=== PATIENT | male | born 1950 | race Caucasian/White ===

== ENCOUNTER 2024-05-12 09:31 | Outpatient (AMB) | payer MEDICARE, SELFPAY ==
[2024-05-12 09:39] VITALS: BP 148/87; PULSE 94; O2SAT 98; BMI 33.5
--- NOTE | 2024-05-12 09:39 | A.OFFVIS_ITS ---
Vital Signs 05/12/24 09:39 Height 5 ft 9 in Weight 227 lb BMI 33.5 BP 148/87 H Blood Pressure Location Rt brachial Position Sitting Pulse 94 Pulse Source Doppler Pulse Oximetry (%) 98 Oxygen Delivery Method Room Air Intake Visit Reasons: sleep apnea Allergies No Known Allergies Allergy (Verified 05/12/24 09:46) HPI HPI sleep apnea: Details: 73-year-old gentleman, lifetime nonsmoker, with underlying history of obstructive sleep apnea, 1st time diagnosed approximately 10 years prior, previo usly unable to tolerate CPAP therapy with recent repeat sleep study at [facility] is interested in retrying CPAP therapy. [facility] Social History (Updated 05/12/24 @ 09:47 by EDILIA Rojas) Patient Tobacco Use Status: Never used Tobacco Review of Systems Const Denies daytime sleepiness, Denies excessive sweating, Denies fatigue, Denies fever(s), Denies lethargy, Denies malaise, Denies night sweats, Denies snoring and Denies weight loss Eyes Denies blurry vision and Denies itchy eyes ENT Denies nasal congestion, Denies post nasal drip, Denies sinus pain, Denies sinus pressure and Denies other ( Thrush) Card Denies chest pain, Denies pedal edema, Denies dyspnea, Denies orthopnea and Denies paroxysmal nocturnal dyspnea Resp Denies cough, Denies hemoptysis, Denies excessive phlegm production, Denies dyspnea, Denies snoring and Denies wheezing GI Denies abdominal pain and Denies heartburn Musc Denies myalgias, Denies arthralgias and Denies joint swelling Skin/Breast Denies rash Neuro Denies memory loss and Denies seizure-like activity Psych Denies abnormal sleep pattern, Denies anxiety and Denies memory loss Endo Denies excessive sweating, Denies fatigue and Denies heat intolerance Kamron/Lymph Denies easy bruising Aller/Immun Denies itchy eyes, Denies seasonal rhinorrhea and Denies wheezing Physical Exam Vital Signs: Last Vital Signs Pulse 94 05/12/24 09:39 BP 148/87 H 05/12/24 09:39 Pulse Ox 98 05/12/24 09:39 Oxygen Delivery Method Room Air 05/12/24 09:39 BMI result Body Mass Index 33.5 Const General: no acute distress and alert Nutritional Appearance: not obese Orientation/consciousness: Other orientation findings ( oriented) HEENT Head: Yes atraumatic Eyes General: appearance normal, both eyes and all related structures Sclerae: sclerae normal EOM: EOMs intact bilaterally Neck Neck: Yes supple Lymphatic: no lymphadenopathy noted Resp Effort & Inspection: normal respiratory effort and no use of accessory muscles Auscultation: clear to auscultation bilaterally Cardio Rate: regular rate Rhythm: regular rhythm Heart sounds: no gallops, no murmurs and no rubs Skin General skin exam: other ( warm) Extrem General: No clubbing, No cyanosis and No edema Assessment & Plan Assessment & Plan (1) RONAN (obstructive sleep apnea): Code(s): G47.33 - Obstructive sleep apnea (adult) (pediatric) Category: Medical Plan: Underlying RONAN. Will obtain results of most recent sleep study from [facility] and order CPAP. Coding Level of Care Code New Pt Level 3 (85298) Diagnoses RONAN (obstructive sleep apnea) G47.33
== END 2024-05-12 10:04 | disposition home or self-care (01) ==
PROVIDERS: PCP Hospitalist; Visit Provider Internal Medicine Pulmonary Disease
DX: G47.33 Obstructive sleep apnea (adult) (pediatric) (principal)
CPT/HCPCS: 99203

== ENCOUNTER → 2024-05-12 09:31 | Outpatient (BNVA) | payer BC, SELFPAY | PROVIDERS: PCP Hospitalist; Visit Provider Internal Medicine Pulmonary Disease ==

== ENCOUNTER 2024-07-15 09:09 | Outpatient (AMB) | payer MEDICARE, SELFPAY ==
[2024-07-15 09:11] VITALS: BP 111/70; PULSE 91; O2SAT 98; BMI 33.5
--- NOTE | 2024-07-15 09:11 | MHC.OFFVIS ---
Vital Signs 07/15/24 09:11 Height 5 ft 9 in Weight 227 lb BMI 33.5 BP 111/70 Blood Pressure Location Lt brachial Position Sitting Pulse 91 Pulse Source Doppler Pulse Oximetry (%) 98 Oxygen Delivery Method Room Air Intake Visit Reasons: Sleep apnea Allergies No Known Allergies Allergy (Verified 05/12/24 09:46) HPI HPI Sleep apnea: Details: 73-year-old gentleman, lifetime nonsmoker, with underlying history of obstructive sleep apnea, 1st time diagnosed approximately 10 years prior, previously unable to tolerate CPAP therapy with recent repeat sleep study at [facility] is interested in retrying CPAP therapy. Patient states that after the last office visit he was seen by [facility] sleep medicine and was started on CPAP therapy. [facility] Social History (Updated 05/12/24 @ 09:47 by EDILIA Rojas) Patient Tobacco Use Status: Never used Tobacco Review of Systems Const Denies daytime sleepiness, Denies excessive sweating, Denies fatigue, Denies fever(s), Denies lethargy, Denies malaise, Denies night sweats, Denies snoring and Denies weight loss Eyes Denies blurry vision and Denies itchy eyes ENT Denies nasal congestion, Denies post nasal drip, Denies sinus pain, Denies sinus pressure and Denies other ( Thrush) Card Denies chest pain, Denies pedal edema, Denies dyspnea, Denies orthopnea and Denies paroxysmal nocturnal dyspnea Resp Denies cough, Denies hemoptysis, Denies excessive phlegm production, Denies dyspnea, Denies snoring and Denies wheezing GI Denies abdominal pain and Denies heartburn Musc Denies myalgias, Denies arthralgias and Denies joint swelling Skin/Breast Denies rash Neuro Denies memory loss and Denies seizure-like activity Psych Denies abnormal sleep pattern, Denies anxiety and Denies memory loss Endo Denies excessive sweating, Denies fatigue and Denies heat intolerance Kamron/Lymph Denies easy bruising Aller/Immun Denies itchy eyes, Denies seasonal rhinorrhea and Denies wheezing Physical Exam Vital Signs: Last Vital Signs Pulse 91 07/15/24 09:11 BP 111/70 07/15/24 09:11 Pulse Ox 98 07/15/24 09:11 Oxygen Delivery Method Room Air 07/15/24 09:11 BMI result Body Mass Index 33.5 Const General: no acute distress and alert Nutritional Appearance: not obese Orientation/consciousness: Other orientation findings ( oriented) HEENT Head: Yes atraumatic Eyes General: appearance normal, both eyes and all related structures Sclerae: sclerae normal EOM: EOMs intact bilaterally Neck Neck: Yes supple Lymphatic: no lymphadenopathy noted Resp Effort & Inspection: normal respiratory effort and no use of accessory muscles Auscultation: clear to auscultation bilaterally Cardio Rate: regular rate Rhythm: regular rhythm Heart sounds: no gallops, no murmurs and no rubs Skin General skin exam: other ( warm) Extrem General: No clubbing, No cyanosis and No edema Assessment & Plan Assessment & Plan (1) RONAN (obstructive sleep apnea): Code(s): G47.33 - Obstructive sleep apnea (adult) (pediatric) Category: Medical Plan: CPAP ordered by [facility] sleep medicine. Patient to continue follow-up with [facility] sleep medicine. Coding Level of Care Code Est Pt Level 2 (67687) Diagnoses RONAN (obstructive sleep apnea) G47.33
== END 2024-07-15 09:23 | disposition home or self-care (01) ==
PROVIDERS: PCP Hospitalist; Visit Provider Internal Medicine Pulmonary Disease
DX: G47.33 Obstructive sleep apnea (adult) (pediatric) (principal)
CPT/HCPCS: 99212

== ENCOUNTER → 2024-07-15 09:09 | Outpatient (BNVA) | payer MEDICARE, SELFPAY | PROVIDERS: PCP Hospitalist; Visit Provider Internal Medicine Pulmonary Disease | DX: G47.33 Obstructive sleep apnea (adult) (pediatric) (principal) | CPT/HCPCS: 99212 ==